=== PATIENT | male | born 1950 | race Caucasian/White ===

== ENCOUNTER → 2017-06-18 | Emergency (ER) | payer OTHER ==
[~2017-06-18] VITALS: Ht 167.6 cm; Wt 74.8 kg
[~2017-06-18] MED LIST: CARBAMAZEPINE 200 MG TABLET ONE; CARBAMAZEPINE 200 MG TABLET PO ONE; IV NS 0.9% 1,000 ML BAG IV ONE; LEVETIRACETAM (500MG) 1,000 MG in IV NS 0.9% 100 ML IV ONE
--- NOTE | 2017-06-18 11:25 | NUR ---
WITNESSED FULL TONIC CLONIC SEIZURE IN WAITING ROOM. WEAK AND CONFUSED SINCE 09 THIS MORNING, NAD NOTED, VSS, RESP EVEN AND UNLABORED, PT PUT ON HOSPITAL GOWN AND MONITOR, SEIZURE PRECAUTION IMPLEMENTED. AT BS FOR EVAL.
--- NOTE | 2017-06-18 11:26 | NUR ---
IV INSERTED, BLOOD COLLECTED AND SENT TO LAB.
--- NOTE | 2017-06-18 11:38 | NUR ---
XRAY AT BS
[2017-06-18 11:39] LABS: BASOPHILS # (AUTO) 0.1 /CMM (0.0-0.2); EOSINOPHILS # (AUTO) 0.1 /CMM (0.0-0.7); EOSINOPHILS % (AUTO) 0.9 % (0.0-6.0); HEMATOCRIT 44 % (39-51); HEMOGLOBIN 14.9 g/dL (13.5-17.5); LYMPHOCYTES # (AUTO) 3.5 /CMM (0.8-4.8); LYMPHOCYTES % (AUTO) 42.5 % (20.0-44.0); MEAN CORPUSCULAR HEMOGLOBIN 32 PG (26.0-33.0); MEAN CORPUSCULAR HGB CONC 34 g/dl (31.0-36.0); MEAN CORPUSCULAR VOLUME 93 fL (80-96); MONOCYTES # (AUTO) 0.7 /CMM (0.1-1.30); MONOCYTES % (AUTO) 8.4 % (2.0-12.0); NEUTROPHILS # (AUTO) 3.9 /CMM (1.8-8.9); NEUTROPHILS % (AUTO) 47.2 % (43.0-81.0); PLATELET COUNT (AUTO) 285 /CMM (150-450); RDW COEFFICIENT OF VARIATION 12.5 (11.5-15.0); RED BLOOD CELL COUNT(AUTO) 4.73 MIL/uL (4.5-6.0); WHITE BLOOD COUNT (AUTO) 8.3 K/uL (4.3-11.0)
[2017-06-18 12:06] LABS: CALCIUM, SERUM 9.5 mg/dL (8.5-10.1); CREATININE 1.2 mg/dL (0.6-1.3); POTASSIUM 3.3 mmol/L (3.5-5.1)
[2017-06-18 12:11] LABS: INR 0.91 (0.87-1.13); PROTHROMBIN TIME 9.5 SECS (9.5-12.7)
--- NOTE | 2017-06-18 13:46 | NUR ---
Patient discharged to home in stable condition. Written and verbal after care instructions given. Patient verbalizes understanding of instruction. IV removed. Catheter intact and site benign. Pressure and 4x4 applied to site. No bleeding noted.
--- NOTE | 2017-06-18 13:46 | NUR ---
PT REFUSED TEGRETOL. AWARE AND CANCELLED THE ORDER
[2017-06-18 14:22] VITALS: BP 142/85
== END | disposition home or self-care (01) ==
LOC: ER 11:12
DX: G40.909 Epilepsy, unspecified, not intractable, without status epilepticus (principal); I10 Essential (primary) hypertension; I25.2 Old myocardial infarction
CPT/HCPCS: 36415; 70450; 71010; 80048; 85025; 85730; 93005; 96365; 99285; A4606; J1953; J7030 ×2; Z7610